=== PATIENT | male | born 1970 | race Two or more races ===

== ENCOUNTER 2025-04-05 09:21 | Emergency (ER) | payer MEDICAID ==
[~2025-04-05] VITALS: Ht 180.3 cm; Wt 108.3 kg
--- NOTE | 2025-04-05 10:32 | DVH ---
XY CHEST PORTABLE, HISTORY: cough COMPARISON: None None TECHNICAL DATA: 1 view of the chest was obtained. FINDINGS: Lines and tubes: None Cardiomediastinal silhouette: normal Pulmonary vasculature: normal Lung expansion: normal Lung airspace: normal Lung interstitium: normal Pleura: normal Pneumothorax: no Bones: Unremarkable Other: no IMPRESSION: No acute intrathoracic abnormality.
--- NOTE | 2025-04-05 10:58 | ED.PDOC ---
SOB-HPI HPI Comments 54 year old male presents to the ED with a chief complaint of cough onset 1 month. Patient states he has been experiencing cough for the past month, has been seen at urgent care 2 times, has been prescribed antibiotic and steroids with no improvement of symptoms. Patient noticed cough worsens at night, is not able to sleep due to cough. Denies any PMHx as well as fever, chills, headache, dizziness, nausea, vomiting, headache. No other symptoms or modifying factors present at this time. Chief Complaint: Cough Time Seen by MD: 10:15 Reviewed notes: Medications, Allergies Information Source: Patient, Relative Mode of Arrival: Ambulatory Severity: Moderate Timing: Months Duration: Since onset Context: At Rest PE Risk Factors: None History of: None Prehospital treatment: None Modifying Factors: Nothing Associated Signs and Symptoms: Cough If cough with SOB: Non-Productive Past Medical History PAST MEDICAL HISTORY: Denies Surgical History: Denies all surgeries Family History Family History: Reviewed,noncontributory to illness, No family hx of Cancer, No family hx of DM, No family hx of Heart mo, No family hx of HTN, No family hx ofKidney mo, No family hx of Liver mo, No family hx of Lung mo, No family hx of Stroke Social History Smoker: Non-Smoker Alcohol: Denies ETOH Use Drugs: Denies Drug Use Lives In: Home Constitutional: denies: chills, diaphoresis, fatigue, fever, malaise, sweats, weakness, others EENTM: denies: blurred vision, double vision, ear bleeding, ear discharge, ear drainage, ear pain, ear ringing, eye pain, eye redness, hearing loss, mouth pain, mouth swelling, nasal discharge, nose bleeding, nose congestion, nose pain, photophobia, tearing, throat pain, throat swelling, voice changes, others Respiratory: reports: cough; denies: hemoptysis, orthopnea, SOB at rest, shortness of breath, SOB with excertion, stridor, wheezing, others Cardiovascular: denies: chest pain, dizzy spells, diaphoresis, Dyspnea on exertion, edema, irregular heart beat, left arm pain, lightheadedness, pal pitations, PND, syncope, others Gastrointestinal: denies: abdomen distended, abdominal pain, blood streaked bowels, constipated, diarrhea, dysphagia, difficulty swallowing, hematemesis, melena, nausea, poor appetite, poor fluid intake, rectal bleeding, rectal pain, vomiting, others Genitourinary: denies: burning, dysuria, flank pain, frequency, hematuria, incontinence, penile discharge, penile sore, pain, testicle pain, testicle swelling, urgency, others Neurological: denies: dizziness, fainting, headache, left sided numbness, left sided weakness, numbness, paresthesia, pre-existing deficit, right sided numbness, right sided weakness, seizure, speech problems, tingling, tremors, weakness, others Musculoskeletal: denies: back pain, gout, joint pain, joint swelling, muscle pain, muscle stiffness, neck pain, others Integumetry: denies: bruises, change in color, change in hair/nails, dryness, laceration, lesions, lumps, rash, wounds, others Allergic/Immunocompromised: denies: Difficulty Healing, Frequent Infections, Hives, Itching, others Hematologic/Lymphatic: denies: anemia, blood clots, easy bleeding, easy bru ising, swollen glands, others Endocrine: denies: excessive hunger, excessive sweating, excessive thirst, e xcessive urination, flushing, intolerance to cold, intolerance to heat, unexplained weight gain, unexplained weight loss, others Psychiatric: denies: anxiety, bipolar disorder, depression, hopeless, panic disorder, schizophrenia, sleepless, suicidal, others All Other Systems: Reviewed and Negative Physical Exam General Appearance: No Apparent Distress, Normal HEENT: Normal ENT Inspection, Pharynx Normal, TMs Normal Neck: Full Range of Motion, Non-Tender, Normal, Normal Inspection Respiratory: Chest Non-Tender, Lungs Clear, No Accessory Muscle Use, No Respiratory Distress, Normal Breath Sounds Cardiovascular: No Edema, No JVD, No Murmur, No Gallop, Normal Peripheral Pulses, Regular Rate/Rhythm Breast Exam: Deferred Gastrointestinal: No Organomegaly, Non Tender, No Pulsatile Mass, Normal Bowel Sounds, Soft Genitalia: Deferred Pelvic: Deferred Rectal: Deferred Extremities: No calf tenderness, Normal capillary refill, Normal inspection, Normal range of motion, Non-tender, No pedal edema Musculoskeletal : Apperance: Normal Neurologic: Alert, greenstone polisher operator II-XII nml as Tested, No Motor Deficits, Normal Affect, Normal Mood, No Sensory Deficits Cerebellar Function: Normal Reflexes: Normal Skin: Dry, Normal Color, Warm Lymphatic: No Adenopathy Was a procedure done? Was a procedure done?: No Differential Dx Differential Diagnosis: Bronchitis, COPD X-Ray, Labs, Meds, VS Vital Signs Date Time Temp Pulse Resp B/P (MAP) Pulse Ox O2 Delivery O2 Flow Rate FiO2 04/05/25 11:15 14 99 Room Air* 0 21 04/05/25 10:56 97.5 72 16 136/90 (105) 99 97.5 04/05/25 10:54 72 16 99 Room Air 04/05/25 09:40 97.6 88 17 133/81 (98) 97 97.6 Current Medications Medications (Trade) Dose Ordered Sig/Winston Route Start Time Stop Time Status Last Admin Guaifenesin/ Codeine Phosphate (Robitussin/ Codeine Liq) 10 ml ONCE ONCE PO 04/05/25 10:30 04/05/25 10:31 DC 04/05/25 11:11 Albuterol (Ventolin Medneb) 5 mg ONCE ONCE NEB 04/05/25 11:00 04/05/25 11:01 DC 04/05/25 11:14 Ipratropium [place] (Atrovent Medneb) 0.5 mg ONCE ONCE NEB 04/05/25 11:00 04/05/25 11:01 DC 04/05/25 11:15 [place] [id number] Ph: [phone] DIAGNOSTIC IMAGING Diagnostic Imaging Report : [id number] Signed PATIENT: MARIA VICTORIA CHUNG I ACCT: [id number] UNIT: [id number] : 1970 LOC: ER ROOM / BED: / AGE / SEX: 54 / M ADM STATUS: REG ER SERVICE [id number] ORDERING PHYSICIAN: NANCI BOOKER MD PROCEDURE(s): CXRP - CHEST PORTABLE REASON: cough ORDER NUMBER(s): [id number], ACCESSION NUMBER(s): [id number] XY CHEST PORTABLE, HISTORY: cough COMPARISON: None None TECHNICAL DATA: 1 view of the chest was obtained. FINDINGS: Lines and tubes: None Cardiomediastinal silhouette: normal Pulmonary vasculature: normal Lung expansion: normal Lung airspace: normal Lung interstitium: normal Pleura: normal Pneumothorax: no Bones: Unremarkable Other: no IMPRESSION: No acute intrathoracic abnormality. ATED BY: RICHI TIWARI MD DICTATED DATE/TIME: 04/05/25 103 SIGNED BY: RICHI TIWARI MD SIGNED DATE/TIME: 04/05/251029 CC: Time of 1ST Reevaluation: 10:45 Reevaluation 1ST: Unchanged Patient Education/Counseling: Diagnosis, Treatment, Prognosis Family Education/Counseling: Diagnosis, Treatment, Prognosis SEPSIS Sepsis Screen Date sepsis recognized/suspect: Apr 05, 2025 Time Sepsis recognized/suspect: 939 Recent Procedure: No On Antibiotic Therapy: No Respiratory Rate >20: No Heart Rate >90: No Temp<36 C (96.8 F) or >38.3 C: No SBP <90 or MAP <65 mmHG: No New Acute Mental Status Change: No Is the patient on CPAP, BIPAP,: No Physician Orders Chest Portable (04/05/25 09:52) Vital Signs Date Time Temp Pulse Resp B/P (MAP) Pulse Ox O2 Delivery O2 Flow Rate FiO2 04/05/25 11:15 14 99 Room Air* 0 21 04/05/25 10:56 97.5 72 16 136/90 (105) 99 97.5 04/05/25 10:54 72 16 99 Room Air 04/05/25 09:40 97.6 88 17 133/81 (98) 97 97.6 Medications Medications Dose Ordered Sig/Winston Route Start Time Stop Time Status Last Admin Dose Admin Albuterol 5 mg ONCE ONCE NEB 04/05/25 11:00 04/05/25 11:01 DC 04/05/25 11:14 Guaifenesin/ Codeine Phosphate 10 ml ONCE ONCE PO 04/05/25 10:30 04/05/25 10:31 DC 04/05/25 11:11 Ipratropium [place] 0.5 mg ONCE ONCE NEB 04/05/25 11:00 04/05/25 11:01 DC 04/05/25 11:15 Departure 1 Departure Time of Disposition: 12:17 (You likely have bronchitis. We will discharge patient home with outpatient follow up) Impression: Primary Impression: Bronchitis Disposition: 01 HOME / SELF CARE / HOMELESS Condition: Stable Referrals: TEMO ABDI MD Additional Instructions: You likely have bronchitis. You were referred to Dr. Abdi our habitat conservation planner. Please make an appointment within 1 week. You should continue to take the medications as prescribed You were prescribed another cough medicine. Please take as directed. You can also prescribed an albuterol inhaler. Please take as directed. If your symptoms worsen or you have other concerns please return to the emergency room. e-Prescriptions Albuterol Sulfate (VENTOLIN MDI) 90 Mcg Ih 90 MCG IN Q2HP PRN for 7 Days, #1 INH Prov: NANCI BOOKER MD 04/05/25 Guaifenesin-Codeine (Guaifenesin/Codeine 100-10 mg/5Ml) 1 Natalie Natalie 5 ML PO TID PRN for 5 Days, #75 ML Prov: NANCI BOOKER MD 04/05/25 Discharged With: Self Critical Care Note Critical Care Time?: No Stability Stability form required: No Heart Score Heart Score: Heart Score Response (Comments) Value History N/A 0 EKG N/A 0 Age N/A 0 Risk Factors N/A 0 Troponin N/A 0 Total 0 I personally scribed for NANCI BOOKER MD ([email or web address]) on 04/05/25 at 10:58. Electronically submitted by Idalia Singer ([email or web address]). NANCI BOOKER MD Apr 05, 2025 10:58
[2025-04-05] MEDS: guaiFENesin-CODEINE Liq 5 ML UD PO ONE (11:11)
[2025-04-05] MEDS: ALBUTEROL SULF 2.5 MG/0.5ML(0.5%) NEB SOLN NEB ONE (11:14)
[2025-04-05] MEDS: IPRATROPIUM BROM 0.5 MG/2.5ML INH SOL NEB ONE (11:15)
[2025-04-05] MEDS ORDERED: ALBUAER3 IN (12:19)
[2025-04-05] MEDS ORDERED: [UNRECOGNIZED DRUG - CODE] PO (12:19)
[2025-04-05 12:34] VITALS: BP 132/78; PULSE 80; RESP 16; TEMP 97.5; O2SAT 94
== END 2025-04-05 12:37 | disposition home or self-care (01) ==
LOC: EEVIPCON 09:21 → ER 09:21
DX: J40 Bronchitis, not specified as acute or chronic (principal)
CPT/HCPCS: 71045; 94640